=== PATIENT | female | born 1975 | race African-American/Black ===

== ENCOUNTER 2018-06-02 09:21 | Outpatient (CLI) | payer OTHER ==
--- NOTE | 2018-06-02 11:16 | RAD ---
LEFT THUMB RADIOGRAPHS THREE VIEWS: Date: 06-02-18 Provided Clinical History: Left thumb pain status post injury. FINDINGS: There is no evidence for fracture or other acute osseous abnormality. Degenerative changes are seen a t the first CMC joint. Alignment appears anatomic. Joint spaces appear preserved. IMPRESSION: First CMC degenerative arthrosis. POS: [facility]
== END 2018-06-02 09:22 | disposition home or self-care (01) ==
LOC: SCSMAMMO 09:21
PROVIDERS: ATTEND Family Medicine
DX: M79.645 Pain in left finger(s) (principal); M18.12 Unilateral primary osteoarthritis of first carpometacarpal joint, left hand
CPT/HCPCS: 77067

== ENCOUNTER 2018-11-10 10:57 | Emergency (ER) | payer OTHER ==
[2018-11-10] MEDS ORDERED: Morphine 10 MG/ML VIAL ONE (11:21)
[2018-11-10 12:34] LABS: Bilirubin Negative (Negative); Blood, Urine Negative (Negative); Clarity CLOUDY (Clear); Glucose, Urine (Dipstick) Negative (Negative); Leukocyte Negative (Negative); Nitrite Negative (Negative); Protein, Urine (Dipstick) Negative (Neg-Trace); Urobilinogen 0.2 mg/dL (0.2-1.0); pH, Urine 5.5 (5.0-9.0)
[2018-11-10 12:39] LABS: Pregnancy Test - Urine (BHCG) Negative (Negative); Pregu Control Background? CLEAR/WHITE (CLR/WHITE); Pregu Control Bar Appear? YES (CONTROL BAR)
--- NOTE | 2018-11-10 13:23 | ULT ---
TRANSABDOMINAL AND ENDOVAGINAL IMAGING OF THE PELVIS: HISTORY: Evaluate for uterine prolapse. COMPARISON: None. TECHNIQUE: Transabdominal and endovaginal imaging of the pelvis is performed. The ovaries are interrogated with campbell-scale, color-flow, and Doppler imaging with spectral wave-form analysis. FINDINGS: The uterus is identified, measuring 9.2 x 5 x 6.2 cm. A small nabothian cyst is noted. No masses in the uterine myometrium. Endometrial diameter is 1.2 cm. There is a normal echotexture with regard to the left ovary, measuring 4.2 x 2.2 x 1.7 cm. There is no fluid in the left adnexa. There is a slightly complex (septated) cyst in the right ovary, measuring 1.7 x 1.7 x 2.1 cm. Overal l, the right ovary measures 2.4 x 4.5 x 2.4 cm. On ovarian Doppler, limited evaluation. There does appear to be flow in the right ovary. Limited ev aluation of flow in the left ovary, likely due to the position of the ovary. There is no sonographic evidence of uterine prolapse. IMPRESSION: No sonographic evidence of uterine prolapse. POS: [facility]
== END 2018-11-10 13:40 | disposition home or self-care (01) ==
LOC: ERS 10:57
DX: R10.2 Pelvic and perineal pain (principal); R35.0 Frequency of micturition; K21.9 Gastro-esophageal reflux disease without esophagitis; Z87.891 Personal history of nicotine dependence; J45.909 Unspecified asthma, uncomplicated; Z79.51 Long term (current) use of inhaled steroids
CPT/HCPCS: 76856; 81003; 81025; 96372; J2270

== ENCOUNTER 2020-02-09 12:27 | Outpatient (CLI) | payer OTHER ==
--- NOTE | 2020-02-09 14:52 | CT ---
CT Abdomen Pelvis W Con: 02/09/2020 12:00 AM CLINICAL INFORMATION: Right lower quadrant abdominal pain COMPARISON: None. TECHNIQUE: Multiple contiguous axial images were obtained and a CT of the abdomen and pelvis with IV contrast. Oral contrast was administered. Coronal and sagittal reformats were performed. FINDINGS: Lower Chest: within normal limits. Abdomen: Liver: 1.9 cm nonspecific hypodensity in the liver with mean Hounsfield unit value of 55. This could represent a hemangioma that has not yet filled. Bile Ducts: Normal caliber. Gallbladder: No calcified gallstones. Normal caliber wall. Pancreas: within normal limits. Spleen: within normal limits. Adrenals: within normal limits. Kidneys: within normal limits. Pelvis: Reproductive Organs: No pelvic masses. Ureters: within normal limits. Bladder: within normal limits. Peritoneum: No ascites or free air, no fluid collection. Bowel: Normal caliber. Normal appendix. Mesentery and Retroperitoneum: No enlarged mesenteric or retroperitoneal lymph nodes. Vessels: Normal. Abdominal Wall: within normal limits. Bones: Within normal limits IMPRESSION: 1. No evidence of acute intraabdominal or pelvic abnormality. 2. Nonspecific hepatic hypodensity could represent a hemangioma that has not yet filled.
== END 2020-02-09 12:28 | disposition home or self-care (01) ==
LOC: SCSCT 12:27
PROVIDERS: ATTEND Family Medicine
DX: R10.30 Lower abdominal pain, unspecified (principal); K76.89 Other specified diseases of liver
CPT/HCPCS: 36415; 74177; 80053; 85025

== ENCOUNTER 2020-02-15 09:13 | Outpatient (CLI) | payer OTHER ==
--- NOTE | 2020-02-15 10:02 | ULT ---
Pelvic sonogram transabdominal and transvaginal imaging with duplex evaluation HISTORY: Pelvic pain and pressure. FINDINGS: Urinary bladder is incompletely distended. Uterus has a heterogeneous echotexture and is 9. 4 cm length. No focal masses. Endometrium is 1.6 cm. Physiologic amount of free fluid is present within the cul-de-sac. Nabothian c yst arises from the uterine cervix. Right ovary is 4.1 cm length and left is 4.2 cm. Each has a normal sonographic appearance with good c olor and spectral Doppler flow. IMPRESSION : Endometrial thickness 1.6 cm. Please correlate with stage of menstrual cycle. No abnormalities are otherwise demonstrated.
== END 2020-02-15 09:14 | disposition home or self-care (01) ==
LOC: SCSULT 09:13
PROVIDERS: ATTEND Family Medicine
DX: R10.30 Lower abdominal pain, unspecified (principal)
CPT/HCPCS: 76856

== ENCOUNTER 2020-09-21 10:32 | Outpatient (CLI) | payer OTHER ==
[2020-09-21 14:46] LABS: #Eosinphils 0.1 thou/uL (0.0-0.7); #Lymphocytes 3.6 thou/uL (1.20-3.40); #Monocytes 0.9 thou/uL (0.11-0.59); #Neutrophils 7.7 thou/uL (1.40-6.50); %Basophils 0.3 % (0.0-1.0); %Lymphocytes 28.8 % (21.0-51.0); %Monocytes 6.9 % (0.0-10.0); %Neutrophils 62.9 % (42.0-75.0); Hemoglobin 12.5 g/dL (12.0-16.0); Mean Corpuscular HGB CONC 32.1 g/dL (32.0-36.0); Mean Corpuscular Hemoglobin 29.6 pg (27.0-31.0); Mean Corpuscular Volume 92.1 fL (78.0-98.0); Mean Platelet Volume 7.7 fL (7.4-10.4); Platelet Count 329 thou/uL (130-400); RBC Distribution Width 12.6 % (11.5-14.5); Red Blood Cell (RBC) Count 4.21 mill/uL (4.20-5.40); White Blood Cell (WBC) Count 12.3 thou/uL (4.8-10.8)
--- NOTE | 2020-09-21 14:57 | RAD ---
RIGHT THUMB 3 VIEWS: HISTORY: Thumb pain. No history of injury. FINDINGS: There are arthritic changes of the thumb. These changes include degenerative change of the 1st carpo metacarpal join space and 1st metacarpophalangeal joint. No fracture. IMPRESSION: Mild arthritic change of the thumb. POS: [facility]
[2020-09-21 14:59] LABS: Anion Gap 13 mmol/L (10-20); BUN (Urea Nitrogen) 14 mg/dL (7.0-18.7); Calc. Creatinine Clearance 0 mL/min (70-130); Carbon Dioxide 28 mmol/L (22-29); Chloride 103 mmol/L (98-107); Potassium 4.7 mmol/L (3.5-5.1); Sodium 139 mmol/L (136-145)
[2020-09-21 15:00] LABS: ALT (SGPT) 14 U/L (8-55); AST (SGOT) 13 U/L (5-34); Albumin 3.9 g/dL (3.5-5.0); Alkaline Phosphatase 48 U/L (40-110); Bilirubin, Total 0.6 mg/dL (0.2-1.2); Calcium 8.8 mg/dL (7.8-10.44); Globulin 3.1 g/dL (2.4-3.5); Glucose 86 mg/dL (70-105); Magnesium 2.3 mg/dL (1.6-2.6)
--- NOTE | 2020-09-21 15:01 | RAD ---
LUMBAR SPINE 2 VIEWS: HISTORY: Back pain. FINDINGS: Lumbar vertebrae maintain normal height and alignment. Disk spaces are preserved. No evidence of sp ondylolisthesis. No significant degenerative change. IMPRESSION: Unremarkable lumbar spine. POS: [facility]
[2020-09-21 15:22] LABS: Free T4 (Free Thyroxine) 1.01 ng/dL (0.70-1.48); Thyroid Stimulating Hormone 1.4193 uIU/mL (0.35-4.94)
== END 2020-09-21 10:33 | disposition home or self-care (01) ==
LOC: SCSRAD 10:32
PROVIDERS: ATTEND Student in an Organized Health Care Education/Training Program
DX: M54.5 Low back pain (principal); M79.644 Pain in right finger(s); R20.2 Paresthesia of skin; M18.11 Unilateral primary osteoarthritis of first carpometacarpal joint, right hand; M19.041 Primary osteoarthritis, right hand
CPT/HCPCS: 36415; 72100; 80053; 82607; 82746; 83735; 84439; 84443; 85025

== ENCOUNTER 2022-03-18 13:20 | Outpatient (CLI) | payer BC | END 2022-03-18 13:21 | disposition home or self-care (01) | LOC: BICULT 13:20 | PROVIDERS: ATTEND Student in an Organized Health Care Education/Training Program | DX: R60.0 Localized edema (principal) | CPT/HCPCS: 93970 ==

== ENCOUNTER 2022-04-02 09:15 | Inpatient (IN) | payer BC ==
[2022-04-02 10:11] LABS: #Eosinphils 0.2 thou/uL (0.0-0.7); #Monocytes 0.4 thou/uL (0.11-0.59); #Neutrophils 4.4 thou/uL (1.40-6.50); %Basophils 0.1 % (0.0-1.0); %Eosinophils 2.9 % (0.0-10.0); %Lymphocytes 28.2 % (21.0-51.0); %Monocytes 6.4 % (0.0-10.0); %Neutrophils 62.5 % (42.0-75.0); Hemoglobin 11.1 g/dL (12.0-16.0); Mean Corpuscular HGB CONC 32.8 g/dL (32.0-36.0); Mean Corpuscular Hemoglobin 29.2 pg (27.0-31.0); Mean Corpuscular Volume 88.8 fL (78.0-98.0); Mean Platelet Volume 8.6 fL (7.4-10.4); Platelet Count 254 thou/uL (130-400); RBC Distribution Width 12.5 % (11.5-14.5); Red Blood Cell (RBC) Count 3.82 mill/uL (4.20-5.40)
[2022-04-02] MEDS ORDERED: methylPREDNISolone Sod Succ/PF 125 MG/2 ML VIAL ONE (10:11)
[2022-04-02 10:19] LABS: BHCG - Serum Negative (NEGATIVE); Pregs Control Background? CLEAR/WHITE (CLR/WHITE); Pregs Control Bar Appear? YES (CONTROL BAR)
[2022-04-02] MEDS ORDERED: Albuterol Sulfate 2.5 mg/0.5 ml Neb ONE (10:34)
[2022-04-02] MEDS ORDERED: Albuterol Sulfate 2.5 mg/3 ml Neb ONE (10:34)
[2022-04-02 10:35] LABS: ALT (SGPT) 17 U/L (8-55); AST (SGOT) 15 U/L (5-34); Albumin 4.1 g/dL (3.5-5.0); Alkaline Phosphatase 46 U/L (40-110); Anion Gap 17 mmol/L (10-20); BUN (Urea Nitrogen) 10 mg/dL (7.0-18.7); Bilirubin, Total 0.8 mg/dL (0.2-1.2); Calc. Creatinine Clearance 0 mL/min (70-130); Calcium 8.9 mg/dL (7.8-10.44); Carbon Dioxide 22 mmol/L (22-29); Chloride 104 mmol/L (98-107); Estimated GFR 95; Globulin 3.5 g/dL (2.4-3.5); Glucose 113 mg/dL (70-105); Potassium 3.8 mmol/L (3.5-5.1); Protein, Total 7.6 g/dL (6.0-8.3); Sodium 139 mmol/L (136-145)
[2022-04-02] MEDS ORDERED: Iopamidol-370 76% 500 ML 1 ML ONE (14:33)
[2022-04-02 16:53] VITALS: BMI 30.8
[2022-04-02] MEDS: Arformoterol 15 MCG/2 ML NEB NEB SCH (19:02)
[2022-04-02] MEDS ORDERED: Albuterol 200 PUFF (6.7GM INHALER) INH PRN (20:45)
[2022-04-02] MEDS ORDERED: traMADol HCl 50 MG TAB PO SCH (21:30)
[2022-04-02] MEDS: Famotidine 20 MG TAB PO PRN (21:33)
[2022-04-02] MEDS: Enoxaparin Sodium 40 MG/0.4 ML SYRINGE SC SCH (21:36)
[2022-04-02] MEDS: Guaifenesin DM 100-10/5 ML UDCUP PO PRN (21:36)
[2022-04-03 07:00] LABS: #Basophils 0.1 thou/uL (0.0-0.2); #Lymphocytes 1.7 thou/uL (1.20-3.40); #Monocytes 1.3 thou/uL (0.11-0.59); #Neutrophils 9.8 thou/uL (1.40-6.50); %Basophils 0.5 % (0.0-1.0); %Eosinophils 0.1 % (0.0-10.0); %Lymphocytes 13.3 % (21.0-51.0); %Monocytes 10.2 % (0.0-10.0); %Neutrophils 75.9 % (42.0-75.0); Hemoglobin 10.6 g/dL (12.0-16.0); Mean Corpuscular Hemoglobin 28.7 pg (27.0-31.0); Mean Corpuscular Volume 89.7 fL (78.0-98.0); Mean Platelet Volume 8.3 fL (7.4-10.4); Platelet Count 243 thou/uL (130-400); RBC Distribution Width 12.6 % (11.5-14.5); White Blood Cell (WBC) Count 12.9 thou/uL (4.8-10.8)
[2022-04-03 07:22] LABS: Anion Gap 14 mmol/L (10-20); BUN (Urea Nitrogen) 11 mg/dL (7.0-18.7); Calc. Creatinine Clearance 116 mL/min (70-130); Calcium 8.9 mg/dL (7.8-10.44); Carbon Dioxide 23 mmol/L (22-29); Chloride 107 mmol/L (98-107); Estimated GFR 98; Glucose 115 mg/dL (70-105); Potassium 4.6 mmol/L (3.5-5.1); Sodium 139 mmol/L (136-145)
[2022-04-03] MEDS: Arformoterol 15 MCG/2 ML NEB NEB SCH ×2 (08:27→18:02)
[2022-04-03] MEDS: Enoxaparin Sodium 40 MG/0.4 ML SYRINGE SC SCH ×2 (09:04→20:19)
[2022-04-03] MEDS: Dexamethasone 10 MG/ML VIAL SLOW IVP SCH (09:04)
[2022-04-03] MEDS: Aspirin 325 MG TAB PO SCH (09:04)
[2022-04-03] MEDS ORDERED: Sodium Chloride 0.9% 1,000 ML IV SCH (11:30)
[2022-04-03] MEDS ORDERED: Sodium Chloride 0.9% 500 ML IV SCH (11:30)
[2022-04-03] MEDS: Acetaminophen 325 MG TAB PO PRN ×2 (12:28→20:18)
[2022-04-03] MEDS: Guaifenesin DM 100-10/5 ML UDCUP PO PRN (20:18)
[2022-04-03] MEDS: Famotidine 20 MG TAB PO PRN (20:18)
[2022-04-03] MEDS ORDERED: Lorazepam 0.5 MG TAB PO SCH (23:00)
[2022-04-04 06:11] LABS: #Lymphocytes 2.3 thou/uL (1.20-3.40); #Neutrophils 8.4 thou/uL (1.40-6.50); %Basophils 0.2 % (0.0-1.0); %Eosinophils 0.1 % (0.0-10.0); %Lymphocytes 19.5 % (21.0-51.0); %Monocytes 8.5 % (0.0-10.0); %Neutrophils 71.8 % (42.0-75.0); Hemoglobin 10.5 g/dL (12.0-16.0); Mean Corpuscular HGB CONC 31.3 g/dL (32.0-36.0); Mean Corpuscular Hemoglobin 28.5 pg (27.0-31.0); Mean Platelet Volume 8.7 fL (7.4-10.4); Platelet Count 237 thou/uL (130-400); RBC Distribution Width 12.5 % (11.5-14.5); Red Blood Cell (RBC) Count 3.68 mill/uL (4.20-5.40); White Blood Cell (WBC) Count 11.8 thou/uL (4.8-10.8)
[2022-04-04 06:26] LABS: Anion Gap 14 mmol/L (10-20); BUN (Urea Nitrogen) 13 mg/dL (7.0-18.7); Calc. Creatinine Clearance 120 mL/min (70-130); Calcium 8.6 mg/dL (7.8-10.44); Carbon Dioxide 24 mmol/L (22-29); Chloride 110 mmol/L (98-107); Estimated GFR 102; Glucose 104 mg/dL (70-105); Potassium 4.7 mmol/L (3.5-5.1); Sodium 143 mmol/L (136-145)
[2022-04-04] MEDS: Arformoterol 15 MCG/2 ML NEB NEB SCH ×2 (08:19→18:26)
[2022-04-04] MEDS: Aspirin 325 MG TAB PO SCH (09:22)
[2022-04-04] MEDS: Ascorbic Acid 500 mg Chewable Tablet PO SCH (09:22)
[2022-04-04] MEDS: Enoxaparin Sodium 40 MG/0.4 ML SYRINGE SC SCH ×2 (09:23→20:16)
[2022-04-04] MEDS: Dexamethasone 10 MG/ML VIAL SLOW IVP SCH (09:23)
[2022-04-04 10:49] LABS: Troponin I Less than 0.010 ng/mL (< 0.028)
[2022-04-04] MEDS ORDERED: Iopamidol 370 76% 100 ML VIAL ONE (11:53)
[2022-04-04] MEDS ORDERED: REMDESIVIR 200 MG in Sodium Chloride 0.9% 250 ML 210 ML IV SCH (12:00)
[2022-04-04] MEDS: Acetaminophen 325 MG TAB PO PRN (20:22)
[2022-04-04] MEDS: Famotidine 20 MG TAB PO PRN (20:22)
[2022-04-04] MEDS ORDERED: REMDESIVIR 100 MG in Sodium Chloride 0.9% 250 ML 230 ML IV SCH (22:00)
[2022-04-05 03:56] LABS: #Lymphocytes 2.2 thou/uL (1.20-3.40); #Neutrophils 6.8 thou/uL (1.40-6.50); %Basophils 0.2 % (0.0-1.0); %Eosinophils 0.1 % (0.0-10.0); %Lymphocytes 22.3 % (21.0-51.0); %Neutrophils 67.5 % (42.0-75.0); Hemoglobin 10.8 g/dL (12.0-16.0); Mean Corpuscular HGB CONC 34.6 g/dL (32.0-36.0); Mean Corpuscular Hemoglobin 31.1 pg (27.0-31.0); Mean Corpuscular Volume 89.8 fL (78.0-98.0); Mean Platelet Volume 8.7 fL (7.4-10.4); Platelet Count 232 thou/uL (130-400); RBC Distribution Width 12.6 % (11.5-14.5); Red Blood Cell (RBC) Count 3.48 mill/uL (4.20-5.40); White Blood Cell (WBC) Count 10.1 thou/uL (4.8-10.8)
[2022-04-05 04:23] LABS: Anion Gap 13 mmol/L (10-20); BUN (Urea Nitrogen) 14 mg/dL (7.0-18.7); Calc. Creatinine Clearance 125 mL/min (70-130); Calcium 8.7 mg/dL (7.8-10.44); Carbon Dioxide 22 mmol/L (22-29); Chloride 107 mmol/L (98-107); Estimated GFR 107; Glucose 106 mg/dL (70-105); Potassium 4.2 mmol/L (3.5-5.1); Sodium 138 mmol/L (136-145)
[2022-04-05] MEDS: Arformoterol 15 MCG/2 ML NEB NEB SCH ×2 (06:30→18:24)
[2022-04-05] MEDS: Aspirin 325 MG TAB PO SCH (10:03)
[2022-04-05] MEDS: Ascorbic Acid 500 mg Chewable Tablet PO SCH (10:03)
[2022-04-05] MEDS: Dexamethasone 10 MG/ML VIAL SLOW IVP SCH (10:03)
[2022-04-05] MEDS: Enoxaparin Sodium 40 MG/0.4 ML SYRINGE SC SCH ×2 (10:03→20:41)
[2022-04-05] MEDS: Acetaminophen 325 MG TAB PO PRN (15:10)
[2022-04-06 04:18] LABS: #Lymphocytes 2.5 thou/uL (1.20-3.40); #Monocytes 1.3 thou/uL (0.11-0.59); #Neutrophils 7.5 thou/uL (1.40-6.50); %Basophils 0.4 % (0.0-1.0); %Eosinophils 0.1 % (0.0-10.0); %Lymphocytes 21.7 % (21.0-51.0); %Monocytes 11.8 % (0.0-10.0); Hemoglobin 11.3 g/dL (12.0-16.0); Mean Corpuscular HGB CONC 33.7 g/dL (32.0-36.0); Mean Corpuscular Hemoglobin 30.4 pg (27.0-31.0); Mean Corpuscular Volume 90.3 fL (78.0-98.0); Mean Platelet Volume 8.7 fL (7.4-10.4); Platelet Count 259 thou/uL (130-400); RBC Distribution Width 12.5 % (11.5-14.5); Red Blood Cell (RBC) Count 3.71 mill/uL (4.20-5.40); White Blood Cell (WBC) Count 11.4 thou/uL (4.8-10.8)
[2022-04-06 04:36] LABS: Anion Gap 14 mmol/L (10-20); BUN (Urea Nitrogen) 17 mg/dL (7.0-18.7); Calc. Creatinine Clearance 112 mL/min (70-130); Calcium 8.8 mg/dL (7.8-10.44); Carbon Dioxide 24 mmol/L (22-29); Chloride 107 mmol/L (98-107); Estimated GFR 94; Glucose 118 mg/dL (70-105); Potassium 4.5 mmol/L (3.5-5.1); Sodium 140 mmol/L (136-145)
[2022-04-06] MEDS: Arformoterol 15 MCG/2 ML NEB NEB SCH (07:00)
[2022-04-06] MEDS: Ascorbic Acid 500 mg Chewable Tablet PO SCH (09:29)
[2022-04-06] MEDS: Dexamethasone 10 MG/ML VIAL SLOW IVP SCH (09:29)
[2022-04-06] MEDS: Enoxaparin Sodium 40 MG/0.4 ML SYRINGE SC SCH (09:29)
[2022-04-06] MEDS: Aspirin 325 MG TAB PO SCH (09:29)
[2022-04-06 10:57] VITALS: BP 119/63
[2022-04-06 14:00] VITALS: TEMP 97.8
== END 2022-04-06 15:19 | disposition home or self-care (01) | DRG 177 ==
LOC: ERS 09:15 → T4-B 13:55 → OBSVTOIN 04-03 11:38 → 2NO 04-04 09:44
PROVIDERS: ADMIT Internal Medicine; ATTEND Internal Medicine
PROC: 8E0ZXY6 Isolation (ICD-10-PCS; principal; 2022-04-03)
DX: U07.1 COVID-19 (principal); J96.01 Acute respiratory failure with hypoxia; J45.901 Unspecified asthma with (acute) exacerbation; K21.9 Gastro-esophageal reflux disease without esophagitis; Z28.310 Unvaccinated for COVID-19; Z88.6 Allergy status to analgesic agent; Z88.3 Allergy status to other anti-infective agents; Z91.040 Latex allergy status; Z88.0 Allergy status to penicillin; Z88.2 Allergy status to sulfonamides; Z91.018 Allergy to other foods; Z79.899 Other long term (current) drug therapy; Z98.890 Other specified postprocedural states; Z98.51 Tubal ligation status; Z82.49 Family history of ischemic heart disease and other diseases of the circulatory system; Z83.3 Family history of diabetes mellitus
CPT/HCPCS: 36415; 71045; 71275; 80048; 80053; 82728; 83880; 84484; 84703; 85025; 85379; 86140; 93005; 93010; 93306; 94760; 96372; 96374; 96375; G0378; J1100; J1650; J2930; J7050; J7611; J7620; Q9967

== ENCOUNTER 2023-03-25 11:11 | Emergency (ER) | payer BC ==
[~2023-03-25 11:11] MED LIST: Iopamidol-370 76% 500 ML MDV (1 ML CHARGE) ONE
[2023-03-25] MEDS ORDERED: Morphine 4 MG/ML VIAL ONE (11:43)
[2023-03-25] MEDS ORDERED: Ondansetron PF 4 MG/2 ML Vial ONE (11:43)
[2023-03-25 12:02] LABS: #Basophils 0.1 thou/uL (0.0-0.2); #Eosinphils 0.3 thou/uL (0.0-0.7); #Monocytes 0.6 thou/uL (0.11-0.59); #Neutrophils 5.3 thou/uL (1.40-6.50); %Basophils 0.7 % (0.0-1.0); %Lymphocytes 25.4 % (21.0-51.0); %Neutrophils 63.7 % (42.0-75.0); Hematocrit 34.1 % (36.0-47.0); Hemoglobin 10.9 g/dL (12.0-16.0); Mean Corpuscular Hemoglobin 28.5 pg (27.0-31.0); Mean Corpuscular Volume 89.3 fl (78.0-98.0); Mean Platelet Volume 10.4 fL (7.4-10.4); Platelet Count 297 10x3/uL (130-400); RBC Distribution Width 13.8 % (11.5-14.5); Red Blood Cell (RBC) Count 3.82 mill/uL (4.20-5.40); White Blood Cell (WBC) Count 8.3 10x3/uL (4.8-10.8)
[2023-03-25 12:25] LABS: BHCG - Serum Negative (NEGATIVE); Pregs Control Background? CLEAR/WHITE (CLR/WHITE); Pregs Control Bar Appear? YES (CONTROL BAR)
[2023-03-25 12:29] LABS: ALT (SGPT) 11 U/L (8-55); AST (SGOT) 18 U/L (5-34); Alkaline Phosphatase 48 U/L (40-110); Anion Gap 11 mmol/L (10-20); BUN (Urea Nitrogen) 11 mg/dL (7.0-18.7); Bilirubin, Total 0.7 mg/dL (0.2-1.2); Calc. Creatinine Clearance 0 mL/min (70-130); Calcium 8.8 mg/dL (7.8-10.44); Carbon Dioxide 23 mmol/L (22-29); Chloride 107 mmol/L (98-107); Estimated GFR 98; Globulin 3.3 g/dL (2.4-3.5); Glucose 77 mg/dL (70-105); Potassium 4.2 mmol/L (3.5-5.1); Protein, Total 7.3 g/dL (6.0-8.3); Sodium 137 mmol/L (136-145)
== END 2023-03-25 14:50 | disposition home or self-care (01) ==
LOC: ERS 11:11
DX: K62.5 Hemorrhage of anus and rectum (principal); K51.90 Ulcerative colitis, unspecified, without complications; K21.9 Gastro-esophageal reflux disease without esophagitis
CPT/HCPCS: 74177; 80053; 84703; 85025; 85652; 96374; 96375; J2270; J2405; Q9967

== ENCOUNTER 2023-09-26 10:46 | Outpatient (CLI) | payer BC ==
[2023-09-26 12:19] LABS: #Basophils 0.1 10x3/uL (0.0-0.2); #Eosinphils 0.9 10x3/uL (0.0-0.5); #Monocytes 0.6 10x3/uL (0.0-1.1); #Neutrophils 5.2 10x3/uL (1.5-8.4); %Basophils 0.6 % (0.0-2.0); %Eosinophils 9.7 % (0.0-6.0); %Lymphocytes 26.2 % (18.0-47.0); %Monocytes 6.1 % (0.0-10.0); %Neutrophils 57.2 % (40.0-75.0); Hematocrit 33.6 % (34.9-44.5); Mean Corpuscular HGB CONC 32.7 g/dL (32.0-36.0); Mean Corpuscular Volume 88.7 fl (81.6-98.3); Platelet Count 297 10x3/uL (150-450); RBC Distribution Width 12.9 % (11.5-14.5); Red Blood Cell (RBC) Count 3.79 10x6/uL (3.90-5.03); White Blood Cell (WBC) Count 9.1 10x3/uL (3.5-10.5)
[2023-09-26 12:53] LABS: Anion Gap 12 mmol/L (10-20); BUN (Urea Nitrogen) 13 mg/dL (7.0-18.7); Calc. Creatinine Clearance 0 mL/min (70-130); Calcium 9.2 mg/dL (7.8-10.44); Carbon Dioxide 25 mmol/L (22-29); Chloride 107 mmol/L (98-107); Estimated GFR 104; Glucose 81 mg/dL (70-105); Potassium 5.2 mmol/L (3.5-5.1); Sodium 139 mmol/L (136-145)
== END 2023-09-26 10:47 | disposition home or self-care (01) ==
LOC: LABBT 10:46
PROVIDERS: ATTEND Surgery
DX: Z01.812 Encounter for preprocedural laboratory examination (principal); K40.20 Bilateral inguinal hernia, without obstruction or gangrene, not specified as recurrent
CPT/HCPCS: 80048; 85025

== ENCOUNTER 2023-09-30 06:54 | Day surgery (SDC) | payer BC ==
[2023-09-29 10:22] VITALS: BMI 30.2
[2023-09-30] MEDS ORDERED: Ipratropium/Albuterol 3 ML NEB ONE (07:10)
[2023-09-30] MEDS ORDERED: Ondansetron PF 4 MG/2 ML Vial ONE ×2 (07:10→08:53)
[2023-09-30] MEDS ORDERED: Scopolamine 1 mg/72 hour Patch ONE (07:19)
[2023-09-30] MEDS ORDERED: Propofol 500 MG/50 ML VIAL ONE (07:35)
[2023-09-30] MEDS ORDERED: fentaNYL PF 100 MCG/2 ML SYRINGE ONE ×2 (07:36→09:40)
[2023-09-30] MEDS ORDERED: Rocuronium Bromide 10 MG/ML (10ML VIAL) ONE (07:36)
[2023-09-30] MEDS ORDERED: PROPOFOL 20 ML ONE (07:36)
[2023-09-30] MEDS ORDERED: Lidocaine 1% PF 5 ML VIAL ONE (07:36)
[2023-09-30] MEDS ORDERED: LevoFLOXacin D5W 500 mg (100 mL) BAG ONE (07:40)
[2023-09-30] MEDS ORDERED: Dexamethasone 4 mg/ml Vial ONE (08:09)
[2023-09-30] MEDS ORDERED: Bupivacaine 0.25% HCL 30 ML VIAL ONE (08:10)
[2023-09-30] MEDS ORDERED: EPINEPHrine 1 MG/ML VIAL ONE (08:10)
[2023-09-30] MEDS ORDERED: PHENYLEPHRINE-NS 100 MCG/ML 10 ML SYRINGE ONE (08:14)
[2023-09-30] MEDS ORDERED: SUGAMMADEX SODIUM 200 MG/2 ML VIAL ONE (08:53)
[2023-09-30] MEDS ORDERED: Ketorolac Tromethamine 30 MG (1 mL) VIAL ONE (08:53)
[2023-09-30] MEDS ORDERED: HYDROmorphone 0.5 MG/0.5 ML SYRINGE ONE ×2 (10:06→10:25)
== END 2023-09-30 13:13 | disposition home or self-care (01) ==
LOC: SDC 06:54
PROVIDERS: ATTEND Surgery
PROC: 0YQA4ZZ Repair Bilateral Inguinal Region, Percutaneous Endoscopic Approach (ICD-10-PCS; principal; 2023-09-30)
DX: K40.20 Bilateral inguinal hernia, without obstruction or gangrene, not specified as recurrent (principal); J45.20 Mild intermittent asthma, uncomplicated; K51.90 Ulcerative colitis, unspecified, without complications; Z90.710 Acquired absence of both cervix and uterus; Z98.890 Other specified postprocedural states; Z88.0 Allergy status to penicillin; Z88.8 Allergy status to other drugs, medicaments and biological substances; Z88.1 Allergy status to other antibiotic agents; Z91.018 Allergy to other foods; Z91.040 Latex allergy status; Z88.2 Allergy status to sulfonamides; Z88.5 Allergy status to narcotic agent; Z79.899 Other long term (current) drug therapy
CPT/HCPCS: A4314; C1781; J0171; J0665; J1100; J1170; J1885; J1956; J2405; J2704; J7620

== ENCOUNTER 2025-04-27 11:54 | Emergency (ER) | payer BC ==
[2025-04-27 13:02] LABS: #Basophils 0.04 10x3/uL (0.0-0.2); #Eosinophils 0.17 10x3/uL (0.0-0.7); #Monocytes 0.64 10x3/uL (0.11-0.59); #Neutrophils 8.83 10x3/uL (1.40-6.50); %Basophils 0.3 % (0.0-1.0); %Eosinophils 1.4 % (0.0-10.0); %Lymphocytes 19.3 % (21.0-51.0); %Monocytes 5.3 % (0.0-10.0); %Neutrophils 73.3 % (42.0-75.0); Hematocrit 38.0 % (36.0-47.0); Hemoglobin 11.7 g/dL (12.0-16.0); Mean Corpuscular Hemoglobin 28.1 pg (27.0-31.0); Mean Corpuscular Volume 91.1 fL (78.0-98.0); Platelet Count 243 10x3/uL (130-400); Red Blood Cell (RBC) Count 4.17 mill/uL (4.20-5.40); White Blood Cell (WBC) Count 12.05 10x3/uL (4.8-10.8)
[2025-04-27 14:32] LABS: ALT (SGPT) 9 U/L (Less than 34); AST (SGOT) 15 U/L (11-34); Albumin 4.0 g/dL (3.1-4.5); Alkaline Phosphatase 50 U/L (40-110); Anion Gap 15 mmol/L (10-20); BUN (Urea Nitrogen) 9 mg/dL (7.0-18.7); Bilirubin, Total 0.6 mg/dL (0.3-1.2); Calc. Creatinine Clearance 0 mL/min (70-130); Calcium 9.0 mg/dL (7.8-10.44); Carbon Dioxide 24 mmol/L (22-29); Chloride 103 mmol/L (98-107); Globulin 3.4 g/dL (2.4-3.5); Glucose 86 mg/dL (70-105); Potassium 3.9 mmol/L (3.5-5.1); Sodium 138 mmol/L (136-145)
[2025-04-27] MEDS ORDERED: Iopamidol-370 76% 500 ML MDV (1 ML CHARGE) ONE (15:19)
[2025-04-27] MEDS ORDERED: Albuterol 2.5 MG (0.5 mL) NEB ONE (15:40)
[2025-04-27] MEDS ORDERED: Ipratropium Bromide 2.5 ml Neb ONE (15:40)
== END 2025-04-27 17:20 | disposition home or self-care (01) ==
LOC: ERS 11:54
DX: J45.901 Unspecified asthma with (acute) exacerbation (principal); R91.1 Solitary pulmonary nodule; K21.9 Gastro-esophageal reflux disease without esophagitis; Z79.51 Long term (current) use of inhaled steroids
CPT/HCPCS: 71045; 71275; 80053; 83880; 84484; 85025; 87426; 93005; 94760; 96374; J2919; J7611; J7626; J7644; Q9967